=== PATIENT | female | born 1980 | race Caucasian/White ===

== ENCOUNTER 2016-08-27 18:55 | Emergency (ER) | payer SELFPAY ==
[~2016-08-27] VITALS: Ht 162.6 cm; Wt 89.0 kg
[~2016-08-27 18:55] MED LIST: VIST25CA PO
[2016-08-27 18:57] VITALS: BP 123/61; PULSE 59; RESP 16; TEMP 97.8; O2SAT 98
--- NOTE | 2016-08-27 19:58 | PD ---
Physical Exam Date Seen by Provider: Aug 27, 2016 Time Seen by Provider: 19:56 Narrative 36 yo female here for back pain, dizziness, nausea and vomit. Has had this for about 1 week (the back pain). Dizziness has been ongoing for a few days. back pain is 6/10. Does not know what caused the symptoms. No trauma. Unclear if . No chest pain or SOB. Dizziness comes and goes so does N/V. Vitals are stable in triage. Awaiting Bed placement. Data Data Last Documented VS Vital Signs Date Time Temp Pulse Resp B/P Pulse Ox O2 Delivery O2 Flow Rate FiO2 08/27/16 18:57 97.8 59 16 123/61 98 Room Air [facility] Medical Record Reviewed: Yes Supervised Visit with STANFORD: No Taurus Camara Aug 27, 2016 19:58
== END 2016-08-27 21:20 | disposition left against medical advice (07) ==
LOC: NED 18:55
DX: R42 Dizziness and giddiness (principal)
CPT/HCPCS: 99281